=== PATIENT | male | born 1985 | race Caucasian/White ===

== ENCOUNTER 2022-03-12 12:03 | Emergency (ER) | payer OTHER ==
[2022-03-12 12:36] VITALS: BP 141/95; PULSE 101; RESP 16; TEMP 98.3
--- NOTE | 2022-03-12 13:38 | ED ---
General Adult HPI - General Chief complaint: [place]/Exposure Stated complaint: Exposure [facility] Time Seen by Provider: 03/12/22 13:22 Source: patient, RN notes reviewed, old records reviewed Mode of arrival: ambulatory Limitations: no limitations - History of Present Illness Initial comments: this is a 36-year-old male who had some exposure today at 10:00 on his left forearm of blood and saliva. Patient states yesterday he had a small abrasion occur on the same forearm that appears to be healing over. Patient states when he got the blood in that area and used alcohol to clean everything off and he states there was no stinging at the site of the abrasion. Patient states was no other exposure to any areas that were open. Patient denies any - Related Data Allergies Allergy/AdvReac Type Severity Reaction Status Date / Time cephalexin [From Keflex] AdvReac Unknown Verified 03/12/22 12:36 Review of Systems ROS Statement: Those systems with pertinent positive or pertinent negative responses have been documented in the HPI. ROS Other: All systems not noted in ROS Statement are negative. Past Medical History Past Medical History: No Reported History History of Any Multi-Drug Resistant Organisms: None Reported Past Surgical History: Appendectomy, Orthopedic Surgery Additional Past Surgical History / Comment(s): right elbow Past Psychological History: No Psychological Hx Reported Smoking Status: Never smoker Past Alcohol Use History: Occasional Past Drug Use History: None Reported General Exam - General Exam Comments Initial Comments: GENERAL Patient is well-developed and well-nourished. Patient is in mild distress. EYES Patient's pupils are equal and round. Extraocular motion is intact SKIN patient has a three-quarter centimeter abrasion on the left forearm that appears to be healing very well and it is very superficial NEURO The patient is alert and oriented 3 PYSCH Patient has normal interpersonal interactions. MUSCULOSKELETAL all 4 times and full range of motion Limitations: no limitations Course Vital Signs 03/12/22 12:32 Temperature 98.3 F Pulse Rate 101 H Respiratory 16 Rate Blood Pressure 141/95 O2 Sat by Pulse 96 Oximetry Disposition Clinical Impression: Exposure to blood or body fluid Disposition: HOME SELF-CARE Condition: Good Instructions (If sedation given, give patient instructions): Body Substance Exposure (ED) Is patient prescribed a controlled substance at d/c from ED?: No Referrals: None,Stated [Primary Care Provider] - 1-2 days Time of Disposition: 13:36
[2022-03-12 18:54] LABS: Hepatitis C IgG Antibody Nonreactive (Nonreactive)
[2022-03-12 18:56] LABS: Hepatitis B Surface Antibody Reactive (Nonreactive)
[2022-03-12 21:06] LABS: HIV 2 AB Non-Reactive (Non-Reactive); HIV AB P24 Non-Reactive (Non-Reactive); HIV P24 AG Non-Reactive (Non-Reactive)
== END 2022-03-12 13:52 | disposition home or self-care (01) ==
LOC: EC 12:03
DX: Z77.21 Contact with and (suspected) exposure to potentially hazardous body fluids (principal); Z88.1 Allergy status to other antibiotic agents
CPT/HCPCS: 36415; 86706; 86803; 87390; 99283

== ENCOUNTER 2023-06-01 23:51 | Emergency (ER) | payer OTHER, BC ==
[2023-06-02 00:06] VITALS: TEMP 99.2
[2023-06-02] MEDS ORDERED: ORPHENADRINE 30 MG/ML 2 ML VIAL IM STA (02:12)
[2023-06-02] MEDS ORDERED: DEXAMETHASONE SOD PHOSPHATE 10 MG/ML 1 ML VIAL IM STA (02:12)
--- NOTE | 2023-06-02 03:24 | ED ---
Back Pain HPI - General Chief Complaint: Back Pain/Injury Stated Complaint: [facility], back injury Time Seen by Provider: 06/02/23 01:48 Source: patient - History of Present Illness Initial Comments: 37-year-old male presenting with chief complaint of lower back pain. 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 He is complaining of tightening sensation mainly to the right lower back. No loss of bowel or bladder control or saddle paresthesia. No numbness, tingling, weakness. He took ibuprofen prior to arrival. - Related Data Previous Rx's Medication Instructions Recorded Cyclobenzaprine [Flexeril] 10 mg PO TID PRN #15 tab 06/02/23 Lidocaine 5% Patch [Lidoderm 5% 1 patch TOPICAL DAILY PRN #30 patch 06/02/23 Patch] Allergies Allergy/AdvReac Type Severity Reaction Status Date / Time cephalexin [From Keflex] AdvReac Unknown Verified 06/02/23 00:06 Review of Systems ROS Statement: Those systems with pertinent positive or pertinent negative responses have been documented in the HPI. ROS Other: All systems not noted in ROS Statement are negative. Past Medical History Past Medical History: No Reported History History of Any Multi-Drug Resistant Organisms: None Reported Past Surgical History: Appendectomy, Orthopedic Surgery Additional Past Surgical History / Comment(s): right elbow Past Psychological History: No Psychological Hx Reported Smoking Status: Never smoker Past Alcohol Use History: Occasional Past Drug Use History: None Reported General Exam Limitations: no limitations General appearance: alert, in no apparent distress Head exam: Present: atraumatic, normocephalic, normal inspection Eye exam: Present: normal appearance, EOMI Neck exam: Present: normal inspection, full ROM Respiratory exam: Present: normal lung sounds bilaterally. Absent: respiratory distress, wheezes, rales, rhonchi, stridor Cardiovascular Exam: Present: regular rate, normal rhythm, normal heart sounds. Absent: systolic murmur, diastolic murmur, rubs, gallop, clicks Back exam: Present: normal inspection, paraspinal tenderness Neurological exam: Present: alert, oriented X3, CN II-XII intact Psychiatric exam: Present: normal affect, normal mood Skin exam: Present: warm, dry, intact, normal color. Absent: rash Course Vital Signs 06/02/23 06/02/23 00:05 03:53 Temperature 99.2 F Pulse Rate 102 H 72 Respiratory 18 20 Rate Blood Pressure 156/102 144/90 O2 Sat by Pulse 97 97 Oximetry Medical Decision Making - Medical Decision Making Was pt. sent in by a medical professional or institution (, STEFANIA, DIRECTOR OF THERAPY SERVICES, urgent care, hospital, or group home...) When possible be specific @ -No Did you speak to anyone other than the patient for history (EMS, parent, family, police, friend...)? What history was obtained from this source @ -No Did you review nursing and triage notes (agree or disagree)? Why? @ -I reviewed and agree with nursing and triage notes Were old charts reviewed (outside hosp., previous admission, EMS record, old EKG, old radiological studies, urgent care reports/EKG's, group home records)? Report findings @ -No old charts were reviewed Differential Diagnosis (chest pain, altered mental status, abdominal pain women, abdominal pain men, vaginal bleeding, weakness, fever, dyspnea, syncope, headache, dizziness, GI bleed, back pain, seizure, CVA, palpatations, mental health, musculoskeletal)? @ - MDM Differential Back Pain: Strain, zoster, cauda equina syndrome, epidural abscess, vertebral osteomyelitis, discitis, fracture, subluxation, disc herniation, DJD, spinal stenosis, dissection, AAA, pancreatitis, peptic ulcer disease, pyelonephritis, kidney stone this is not meant to be an all-inclusive list. EKG interpreted by me (3pts min.). @ -As above X-rays interpreted by me (1pt min.). @ -X-ray shows no acute fracture or dislocation CT interpreted by me (1pt min.). @ -None done U/S interpreted by me (1pt. min.). @ -None done What testing was considered but not performed or refused? (CT, X-rays, U/S, labs)? Why? @ -None What meds were considered but not given or refused? Why? @ -None Did you discuss the management of the patient with other professionals (professionals i.e. STEFANIA Cotter, DIRECTOR OF THERAPY SERVICES, lab, RT, psych nurse, social and human services assistant, agricultural equipment operator, teacher, credit products officer, family independence case manager)? Give summary @ -No Was smoking cessation discussed for >3mins.? @ -No Was critical care preformed (if so, how long)? @ -No Were there social determinants of health that impacted care today? How? (Homelessness, low income, unemployed, alcoholism, drug addiction, transportation, low edu. Level, literacy, decrease access to med. care, assisted, rehab)? @ -No Was there de-escalation of care discussed even if they declined (Discuss DNR or withdrawal of care, Hospice)? DNR status @ -No What co-morbidities impacted this encounter? (DM, HTN, Smoking, COPD, CAD, Cancer, CVA, ARF, Chemo, Hep., AIDS, mental health diagnosis, sleep apnea, morbid obesity)? @ -None Was patient admitted / discharged? Hospital course, mention meds given and route, prescriptions, significant lab abnormalities, going to OR and other pertinent info. @ -37-year-old male presenting with chief complaint of lower back strain. Pain primarily on the right side. Paraspinal muscle tenderness on examination. No red flag symptoms. X-ray is negative. Patient is provided with analgesia and discharged home. Follow-up with PCP. Report back to ER with any new or worsening symptoms. Discussed return parameters and answered all questions. Patient conveyed verbal understanding and agreed to the plan. I discussed this case in detail with my attending Dr. Mccoy Undiagnosed new problem with uncertain prognosis? @ -No Drug Therapy requiring intensive monitoring for toxicity (Heparin, Nitro, Insulin, Cardizem)? @ -No Were any procedures done? @ -No Diagnosis/symptom? @ -Lower back strain Acute, or Chronic, or Acute on Chronic? @ -Acute Uncomplicated (without systemic symptoms) or Complicated (systemic symptoms)? @ -Uncomplicated Side effects of treatment? @ -No Exacerbation, Progression, or Severe Exacerbation? @ -No Poses a threat to life or bodily function? How? (Chest pain, [place], [place], pneumonia, PE, COPD, DKA, ARF, appy, cholecystitis, CVA, Diverticulitis, Homicidal, Suicidal, threat to staff... and all critical care pts) @ -No Disposition Clinical Impression: Low back strain Disposition: HOME SELF-CARE Condition: Good Instructions (If sedation given, give patient instructions): Acute Low Back Pain (ED) Additional Instructions: Follow-up with PCP. Report back to ER with any new or worsening symptoms. Take Motrin and Tylenol as needed for pain control. Take medication as prescribed, do not take cyclobenzaprine before driving or operating heavy machinery. Prescriptions: Cyclobenzaprine [Flexeril] 10 mg PO TID PRN #15 tab PRN Reason: Spasms Lidocaine 5% Patch [Lidoderm 5% Patch] 1 patch TOPICAL DAILY PRN #30 patch PRN Reason: Pain Is patient prescribed a controlled substance at d/c from ED?: No Referrals: Judith Goldberg NPC [Primary Care Provider] - 1-2 days Time of Disposition: 03:42
--- NOTE | 2023-06-02 03:38 | XR ---
EXAM: XR Lumbosacral Spine, 2 or 3 Views CLINICAL HISTORY: ITS.REASON XR Reason: injury TECHNIQUE: Frontal and lateral views of the lumbar spine and sacrum. COMPARISON: No relevant prior studies available. FINDINGS: Vertebrae: Unremarkable. No acute fracture. Normal alignment. Sacrum/coccyx: Unremarkable as visualized. No acute fracture. Disc spaces: No acute findings. No significant narrowing. Soft tissues: Unremarkable. IMPRESSION: No evidence of acute lumbar spine pathology. If there is continued clinical concern, a CT scan may be of benefit for further evaluation.
[2023-06-02 03:55] VITALS: BP 144/90; PULSE 72; RESP 20
== END 2023-06-02 03:54 | disposition home or self-care (01) ==
LOC: EC 23:51
DX: S39.012A Strain of muscle, fascia and tendon of lower back, initial encounter (principal); Z88.1 Allergy status to other antibiotic agents; X50.3XXA Overexertion from repetitive movements, initial encounter; Y93.F2 Activity, caregiving, lifting; Y99.0 Civilian activity done for income or pay
CPT/HCPCS: 72100; 99283; 96372 ×2; J1100; J2360

== ENCOUNTER 2023-06-05 16:36 | Emergency (ER) | payer OTHER ==
--- NOTE | 2023-06-05 18:55 | CT ---
EXAMINATION TYPE: CT thoracic spine wo con DATE OF EXAM: 06/05/2023 COMPARISON: Radiograph same day HISTORY: 37-year-old male Back pain. Abnormal x-ray results from today. TECHNIQUE: Contiguous axial scanning of the thoracic spine without IV contrast. Coronal and sagittal reconstructions performed. CT DLP: 933 mGycm Automated exposure control for dose reduction was used. FINDINGS: There is minimal anterior wedging T8 and T11. No acute fracture line is identified. No prevertebral o r paravertebral soft tissue swelling is identified. Mild degenerative disc disease mid to lower thoracic spine. No evident canal compromise. Scattered mild facet arthropathy lower thoracic spine. Calcified right hilar lymph nodes compatible with prior granulomatous. IMPRESSION: 1. THERE IS MILD DEGENERATIVE DISC DISEASE MID TO LOWER THORACIC SPINE. NO ACUTE FRACTURE OR MALALIGN MENT IS SEEN. 2. MINIMAL ANTERIOR WEDGING OF T8 AND T11 VERTEBRAL BODIES HAVE A CHRONIC APPEARANCE. NO PARAVERTEBRA L SOFT TISSUE SWELLING OR DISCRETE FRACTURE LINE IS SEEN.
--- NOTE | 2023-06-05 19:20 | ED ---
General Adult HPI - General Chief complaint: Back Pain/Injury Stated complaint: sent by [facility], back injury Time Seen by Provider: 06/05/23 18:08 Source: patient, RN notes reviewed Mode of arrival: ambulatory - History of Present Illness Initial comments: 37-year-old male presents emergency Department with chief complaint of back pain. [place] [address] and was evaluated at [facility] at that time where x-rays were obtained. He states that he got a call from his [facility] provider today and told him to come to the emergency department for a computed tomography scan of his thoracic spine as he had some abnormalities on his thoracic x-ray. Patient is not having any point tenderness on the spine. He reports right-sided back pain radiating down his right hamstring. He denies any loss of bowel or bladder function, urinary retention, saddle anesthesia, fever. - Related Data Previous Rx's Medication Instructions Recorded Cyclobenzaprine [Flexeril] 10 mg PO TID PRN #15 tab 06/02/23 Lidocaine 5% Patch [Lidoderm 5% 1 patch TOPICAL DAILY PRN #30 patch 06/02/23 Patch] Allergies Allergy/AdvReac Type Severity Reaction Status Date / Time cephalexin [From Keflex] AdvReac Unknown Verified 06/05/23 18:04 Review of Systems ROS Statement: Those systems with pertinent positive or pertinent negative responses have been documented in the HPI. ROS Other: All systems not noted in ROS Statement are negative. Past Medical History Past Medical History: No Reported History History of Any Multi-Drug Resistant Organisms: None Reported Past Surgical History: Appendectomy, Orthopedic Surgery Additional Past Surgical History / Comment(s): right elbow Past Psychological History: No Psychological Hx Reported Smoking Status: Never smoker Past Alcohol Use History: Occasional Past Drug Use History: None Reported General Exam Limitations: no limitations General appearance: alert, in no apparent distress Head exam: Present: atraumatic, normocephalic, normal inspection Eye exam: Present: normal appearance, PERRL, EOMI. Absent: scleral icterus, conjunctival injection, periorbital swelling ENT exam: Present: normal exam, mucous membranes moist Neck exam: Present: normal inspection. Absent: tenderness, meningismus, lymphadenopathy Respiratory exam: Present: normal lung sounds bilaterally. Absent: respiratory distress, wheezes, rales, rhonchi, stridor Cardiovascular Exam: Present: regular rate, normal rhythm, normal heart sounds. Absent: systolic murmur, diastolic murmur, rubs, gallop, clicks GI/Abdominal exam: Present: soft, normal bowel sounds. Absent: distended, tenderness, guarding, rebound, rigid Extremities exam: Present: normal inspection, full ROM, normal capillary refill. Absent: tenderness, pedal edema, joint swelling, calf tenderness Back exam: Present: normal inspection. Absent: tenderness, CVA tenderness (R), CVA tenderness (L), paraspinal tenderness, vertebral tenderness Neurological exam: Present: alert, oriented X3 Psychiatric exam: Present: normal affect, normal mood Skin exam: Present: warm, dry, intact, normal color. Absent: rash Course Vital Signs 06/05/23 06/05/23 17:59 20:23 Temperature 98.8 F 98.1 F Pulse Rate 98 95 Respiratory 18 16 Rate Blood Pressure 136/93 119/85 O2 Sat by Pulse 97 95 Oximetry Medical Decision Making - Medical Decision Making Was pt. sent in by a medical professional or institution (Dr. PA, COMPOUND SPECIALIST, urgent care, hospital, or skilled nursing...) When possible be specific @ -[facility] Did you speak to anyone other than the patient for history (EMS, parent, family, police, friend...)? What history was obtained from this source @ -No Did you review nursing and triage notes (agree or disagree)? Why? @ -I reviewed and agree with nursing and triage notes Were old charts reviewed (outside hosp., previous admission, EMS record, old EKG, old radiological studies, urgent care reports/EKG's, skilled nursing records)? Report findings @ -Lumbar and thoracic spine x-rays were reviewed Differential Diagnosis (chest pain, altered mental status, abdominal pain women, abdominal pain men, vaginal bleeding, weakness, fever, dyspnea, syncope, headache, dizziness, GI bleed, back pain, seizure, CVA, palpatations, mental health, musculoskeletal)? @ -Differential Back Pain: Strain, zoster, cauda equina syndrome, epidural abscess, vertebral osteomyelitis, discitis, fracture, subluxation, disc herniation, DJD, spinal stenosis, dissection, AAA, pancreatitis, peptic ulcer disease, pyelonephritis, kidney stone, this is not meant to be an all-inclusive list. EKG interpreted by me (3pts min.). @ -none X-rays interpreted by me (1pt min.). @ -None done CT interpreted by me (1pt min.). @ -CT thoracic spine showed wedge deformities of T8 through T11 with chronic appearance as interpreted by radiology U/S interpreted by me (1pt. min.). @ -None done What testing was considered but not performed or refused? (CT, X-rays, U/S, labs)? Why? @ -None What meds were considered but not given or refused? Why? @ -None Did you discuss the management of the patient with other professionals (professionals i.e. , PA, COMPOUND SPECIALIST, lab, RT, psych nurse, socially responsible investment adviser, senior fund accountant, teacher, booking police officer, cyanide case hardener)? Give summary @ -No Was smoking cessation discussed for >3mins.? @ -No Was critical care preformed (if so, how long)? @ -No Were there social determinants of health that impacted care today? How? (Homelessness, low income, unemployed, alcoholism, drug addiction, transportation, low edu. Level, literacy, decrease access to med. care, [facility], rehab)? @ -No Was there de-escalation of care discussed even if they declined (Discuss DNR or withdrawal of care, Hospice)? DNR status @ -No What co-morbidities impacted this encounter? (DM, HTN, Smoking, COPD, CAD, Cancer, CVA, ARF, Chemo, Hep., AIDS, mental health diagnosis, sleep apnea, morbid obesity)? @ -None Was patient admitted / discharged? Hospital course, mention meds given and route, prescriptions, significant lab abnormalities, going to OR and other pertinent info. @ -Discharged Patient presented to emergency department with chief complaint of back pain. He was sent in from [facility] for abnormal x-ray. CT thoracic spine showed no evidence for acute fracture, wedge deformities T8 through T11 with chronic appearance. Patient is not having any red flag symptoms at this time. Patient was advised of these findings and to follow up with [facility]. He did not want anything for pain at the time of visit. Patient stable at time of discharge. Case discussed with my attending, Dr. Griffin Undiagnosed new problem with uncertain prognosis? @ -No Drug Therapy requiring intensive monitoring for toxicity (Heparin, Nitro, Insulin, Cardizem)? @ -No Were any procedures done? @ -No Diagnosis/symptom? @ -Back pain Acute, or Chronic, or Acute on Chronic? @ -Acute Uncomplicated (without systemic symptoms) or Complicated (systemic symptoms)? @ -Uncomplicated Side effects of treatment? @ -No Exacerbation, Progression, or Severe Exacerbation? @ -No Poses a threat to life or bodily function? How? (Chest pain, [place], [place], pneumonia, PE, COPD, DKA, ARF, appy, cholecystitis, CVA, Diverticulitis, Homicidal, Alejandra icidal, threat to staff... and all critical care pts) @ -No Disposition Clinical Impression: Mechanical back pain Disposition: HOME SELF-CARE Condition: Stable Instructions (If sedation given, give patient instructions): Acute Low Back Pain (ED) Additional Instructions: Please return to the emergency department for new or worsening symptoms. Is patient prescribed a controlled substance at d/c from ED?: No Referrals: None,Stated [Primary Care Provider] - 1-2 days
[2023-06-05 20:25] VITALS: BP 119/85; PULSE 95; RESP 16; TEMP 98.1
== END 2023-06-05 20:05 | disposition home or self-care (01) ==
LOC: EC 16:36
DX: M51.34 Other intervertebral disc degeneration, thoracic region (principal); Z88.1 Allergy status to other antibiotic agents
CPT/HCPCS: 72128; 99284

== ENCOUNTER → 2023-06-05 | Outpatient (CLI) | payer OTHER ==
--- NOTE | 2023-06-05 14:32 | XR ---
EXAMINATION TYPE: XR thoracic spine complete DATE OF EXAM: 06/05/2023 COMPARISON: NONE HISTORY: Pain TECHNIQUE: 3 views submitted FINDINGS: Alignment is anatomic. There is no compression deformities. Vertebral body height and disc interspa arie are maintained. Very mild anterior hypertrophic spurring at multiple levels. Disc spaces preserv ed. There is very mild wedging T11. IMPRESSION: 1. Mild anterior hypertrophic spurring at multiple levels with very mild wedging of the T10-11 and to lesser extent T12 vertebral segments. The basis of trauma. Consider follow-up CT scan. A Yellow level critical message alert has been initiated for Torey Yusuf DO via the [employer] Critical Results System on 06/05/2023 2:30 PM. This message alert has been sent to Torey julian DO via the preferences provided by the clinician for the receipt of Radiology Critical Findings . Message ID [id number].
== END | disposition home or self-care (01) ==
LOC: RADXRMAIN 14:01
PROVIDERS: ATTEND Emergency Medicine
DX: M48.54XA Collapsed vertebra, not elsewhere classified, thoracic region, initial encounter for fracture (principal)
CPT/HCPCS: 72072

== ENCOUNTER → 2023-06-11 | Outpatient (CLI) | payer OTHER ==
--- NOTE | 2023-06-11 07:57 | MR ---
EXAMINATION TYPE: MR lumbar spine wo con DATE OF EXAM: 06/11/2023 COMPARISON: None HISTORY: Lower back pain, right side, injury. CONTRAST: 0 mL intravenous Gadavist. TECHNIQUE: Multiplanar, multisequence images of the lumbar spine were acquired. FINDINGS: No significant disc bulges are evident. Disc hydration is normal. Disc heights and vertebral body hei ghts are preserved. Alignment is normal. No focal disc herniations evident. Neural foramen are patent . No spinal canal stenosis is present. Cord terminates at the L1 level. IMPRESSION: 1. Unremarkable MRI lumbar spine
== END | disposition home or self-care (01) ==
LOC: RADMRIMAIN 05:54
PROVIDERS: ATTEND Emergency Medicine
DX: S39.012D Strain of muscle, fascia and tendon of lower back, subsequent encounter (principal); M54.6 Pain in thoracic spine; X58.XXXD Exposure to other specified factors, subsequent encounter
CPT/HCPCS: 72148